=== PATIENT | male | born 1960 | race Caucasian/White ===

== ENCOUNTER 2019-07-08 09:54 | Emergency (ER) | payer MEDICAID, OTHER ==
[~2019-07-08] VITALS: Ht 182.9 cm; Wt 94.3 kg
[~2019-07-08 09:54] MED LIST: BECL8.7A6 INH; FLUT9.9S NAS; LORA10CA PO
--- NOTE | 2019-07-08 10:07 | NUR ---
DECLINED WHEELCHAIR. GAIT STEADY TO ROOM.
[2019-07-08] MEDS ORDERED: TRAZ-175 PO (10:31)
[2019-07-08] MEDS ORDERED: FURO20TA3 PO (10:31)
[2019-07-08] MEDS ORDERED: HYDR-826 PO (10:31)
[2019-07-08] MEDS ORDERED: ERGO500017 PO (10:31)
--- NOTE | 2019-07-08 10:35 | NUR ---
PT GOING TO RAD
[2019-07-08 11:22] LABS: BASOPHILS # (AUTO) 0.01 x10^3/uL (0-0.1); BASOPHILS % (AUTO) 0 % (0-1); EOSINOPHILS # (AUTO) 0.13 x10^3/uL (0-0.4); EOSINOPHILS % (AUTO) 2 % (1-7); LYMPHOCYTES # (AUTO) 0.74 x10^3/uL (1-3.4); LYMPHOCYTES % (AUTO) 10 % (22-44); MD NO; MEAN CORPUSCULAR HEMOGLOBIN 28.6 pg (27.5-34.5); MEAN CORPUSCULAR HGB CONC 33.1 g/dL (33.2-36.2); MEAN CORPUSCULAR VOLUME 86.4 fL (81-97); MEAN PLATELET VOLUME 7.5 fL (7.4-10.4); MONOCYTES # (AUTO) 0.51 x10^3/uL (0.2-0.8); MONOCYTES % (AUTO) 7 % (2-9); NEUTROPHILS # (AUTO) 6.41 x10^3/uL (1.8-6.8); NEUTROPHILS % (AUTO) 82 % (42-75); PLATELET COUNT 243 x10^3/uL (130-400); RED BLOOD COUNT 5.59 x10^6/uL (4.38-5.82); RED CELL DISTRIBUTION WIDTH 15.2 % (9.4-14.8)
[2019-07-08 11:34] LABS: ALANINE AMINOTRANSFERASE 15 U/L (12-78); ALBUMIN 3.7 g/dL (3.4-5.0); ANION GAP 5 mmol/L (5-15); CALCIUM 9.3 mg/dL (8.5-10.1); CHLORIDE 107 mmol/L (98-107); CREATININE 1.12 mg/dL (0.7-1.3)
[2019-07-08 11:36] LABS: ALKALINE PHOSPHATASE 135 U/L (45-117); BILIRUBIN,TOTAL 0.6 mg/dL (0.2-1.0); TOTAL PROTEIN 7.3 g/dL (6.4-8.2)
--- NOTE | 2019-07-08 11:41 | NUR ---
PT RESTING CALMLY IN BED. NO STATED NEEDS AT THIS TIME. CALL LIGHT WITHIN REACH. WILL CONTINUE TO MONITOR.
--- NOTE | 2019-07-08 12:27 | NUR ---
ALL RESULTS BACK. PT UP FOR RECHECK.
[2019-07-08] MEDS ORDERED: HYDROcodone/APAP 10/325 MG TABLET PO ONE (13:00)
[2019-07-08] MEDS ORDERED: HYDROcodone/APAP 10/325 MG TABLET ONE (13:01)
--- NOTE | 2019-07-08 13:08 | NUR ---
PT MEDICATED FOR PAIN IN LOWER BACK. PT MADE AWARE HE CAN NOT DRIVE FOR MINIMUM 6 HOURS AFTER TAKING THIS MED. PT STATED HE CAN UBER HOME. PT AWARE OF ORDERED CTs. VSS. WILL CONTINUE TO MONITOR. CALL LIGHT REMAINS WITHIN REACH.
--- NOTE | 2019-07-08 13:40 | NUR ---
PT GOING TO CT.
[2019-07-08 14:48] VITALS: BP 100/52
--- NOTE | 2019-07-08 14:48 | NUR ---
BREAK RN: PT UPRIGHT ON GURNEY AWAKE & COMFORTABLE, WATCHING TV, RESPONDS APPROP TO STAFF, NAD, COMFORT MEASURES PROVIDED, CALL LIGHT WITHIN REACH.
--- NOTE | 2019-07-08 15:20 | NUR ---
Patient given discharge instructions and Rx, they have confirmed that they understand the instructions. Patient ambulatory with steady gait.
== END 2019-07-08 15:22 | disposition home or self-care (01) ==
LOC: ED 11:47
DX: R55 Syncope and collapse (principal); G89.11 Acute pain due to trauma; M54.5 Low back pain; M54.6 Pain in thoracic spine; Z90.49 Acquired absence of other specified parts of digestive tract
CPT/HCPCS: 71045; 72110; 72128; 72131; 80053; 82962; 85025; 93005; 99285